=== PATIENT | female | born 1965 | race Caucasian/White ===

== ENCOUNTER → 2020-09-30 10:17 | Outpatient (CLI) | payer BC, SELFPAY ==
[2020-10-01 19:36] LABS: SARS-CoV-2 RNA PCR Negative
== END ==
PROVIDERS: PCP Internal Medicine; Visit Provider Clinical Nurse Specialist
DX: J32.9 Chronic sinusitis, unspecified (principal); Z20.822 Contact with and (suspected) exposure to COVID-19
CPT/HCPCS: C9803; U0003; U0005